=== PATIENT | female | born 1970 | race Hispanic/Latino ===

== ENCOUNTER 2017-09-12 13:15 | Emergency (ER) | payer OTHER ==
[2017-09-12 13:47] VITALS: BP 141/87; PULSE 105; RESP 20; TEMP 97.2; O2SAT 100
--- NOTE | 2017-09-12 14:33 | ED PDOC ---
HPI: Headache Time Seen by Provider: 09/12/17 14:09 Chief Complaint (Nursing): Headache Chief Complaint (Provider): Headache History Per: Patient History/Exam Limitations: no limitations Onset/Duration Of Symptoms: Days (x2) Current Symptoms Are (Timing): Still Present Associated Symptoms: Nausea Additional Complaint(s): Estefani Mack is a 47-year-old female who presents to the emergency department for evaluation of a headache with associated nausea for the past 2 days. Patient denies any vomiting. She states that symptoms are similar to episodes of migraines in the past. Patient reports that she was treated for a migraine in the ER previously, and believes she was given Percocet. She has taken Aleve nd advil with minimal improvement. She denies taking any medications for relief of symptoms today. Patient states percocet is the only med that helps when she has migraines. She rates current pain as 7/10. PMD: [facility] Past Medical History Reviewed: Historical Data, Nursing Documentation, Vital Signs Vital Signs: Last Vital Signs Temp 97.2 F L 09/12/17 13:44 Pulse 105 H 09/12/17 13:44 Resp 20 09/12/17 13:44 BP 141/87 09/12/17 13:44 Pulse Ox 100 09/12/17 13:44 - Medical History PMH: Depression, HTN (not on meds), Migraine - Surgical History Surgical History: No Surg Hx - Family History Family History: States: Hypertension - Living Arrangements Living Arrangements: With Family - Social History Current smoker - smoking cessation education provided: Yes ("sometimes") Alcohol: None Drugs: Denies - Home Medications Home Medications: Ambulatory Orders Medication Instructions Recorded Amoxicillin 500 mg PO BID #14 tab 06/16/16 Ibuprofen [Motrin] 600 mg PO Q6 #20 tab 08/23/16 Lidocaine 1 each TP Q12 #12 adh..patch 08/23/16 oxyCODONE/Acetaminophen [Percocet 1 ea PO Q6 PRN #5 tab 08/23/16 5/325 mg Tab] Cyclobenzaprine [Cyclobenzaprine 10 mg PO Q8H #20 tab 08/17/17 HCl] Metoclopramide [Reglan] 10 mg PO Q6 PRN #20 tab 09/12/17 Nabumetone [Relafen] 500 mg PO BID #20 tab 09/12/17 - Allergies Allergies/Adverse Reactions: Allergies Allergy/AdvReac Type Severity Reaction Status Date / Time No Known Allergies Allergy Verified 08/23/16 17:24 Review of Systems ROS Statement: Except As Marked, All Systems Reviewed And Found Negative Gastrointestinal: Positive for: Nausea. Negative for: Vomiting Neurological: Positive for: Headache. Negative for: Weakness, Numbness, Incoordination, Change in Speech, Confusion, Seizures, Altered Mental Status, Dizziness Physical Exam - Reviewed Nursing Documentation Reviewed: Yes Vital Signs Reviewed: Yes - Physical Exam Appears: Positive for: Non-toxic, No Acute Distress Head Exam: Positive for: ATRAUMATIC, NORMAL INSPECTION, NORMOCEPHALIC Skin: Positive for: Normal Color. 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 Negative for: Motor/Sensory Deficits, Aphasia - Laboratory Results Urine POC: Negative - ECG O2 Sat by Pulse Oximetry: 100 (RA) Pulse Ox Interpretation: Normal Medical Decision Making Medical Decision Making: Time: 14:30 Initial Impression: 47 year old female with headache, history of migraines Patient was made aware of [facility] non-narcotic pain management policy when treating migraines. Initial Plan: --Urine --Reglan 10 mg IM --Toradol 30 mg IM Patient reports improvement in headache after medications administered. She was given prescriptions for Relafen and Reglan. Advised fluids, rest and follow-up with [facility]. Scribe Attestation: Documented by Vee Stewart, acting as a scribe for Salma Crawford PA-C Provider Scribe Attestation: All medical record entries made by the Scribe were at my direction and personally dictated by me. I have reviewed the chart and agree that the record accurately reflects my personal performance of the history, physical exam, medical decision making, and the department course for this patient. I have also personally directed, reviewed, and agree with the discharge instructions and disposition. Disposition - Clinical Impression Clinical Impression: Migraine - Patient ED Disposition Is Patient to be Admitted: No Counseled Patient/Family Regarding: Diagnosis, Need For Followup, Rx Given - Disposition Referrals: [facility] [Outside] Disposition: Routine/Home Disposition Time: 16:23 Condition: IMPROVED Additional Instructions: Take rx meds as directed. Follow up with primary care doctor in 2-3 days. Prescriptions: Metoclopramide [Reglan] 10 mg PO Q6 PRN #20 tab PRN Reason: Nausea/Vomiting Nabumetone [Relafen] 500 mg PO BID #20 tab Instructions: Migraine Headache (ED) Forms: [employer] (Indonesian)
== END 2017-09-12 17:16 | disposition home or self-care (01) ==
LOC: H.ER 13:15
DX: G43.909 Migraine, unspecified, not intractable, without status migrainosus (principal); F32.9 Major depressive disorder, single episode, unspecified; I10 Essential (primary) hypertension
CPT/HCPCS: 81025; 96372; 99283; J1885; J2765

== ENCOUNTER 2017-11-27 10:46 | Emergency (ER) | payer OTHER ==
[2017-11-27 12:13] VITALS: BP 138/78; PULSE 78; RESP 19; TEMP 97.8; O2SAT 99
--- NOTE | 2017-11-27 12:29 | ED PDOC ---
HPI: CCC, URI, Sore Throat Time Seen by Provider: 11/27/17 12:21 Chief Complaint (Nursing): Cough, Cold, Congestion Chief Complaint (Provider): Cough History Per: Patient History/Exam Limitations: no limitations Onset/Duration Of Symptoms: Days (x3) Current Symptoms Are (Timing): Still Present Additional Complaint(s): 47 year old female presents to the ER complaining of cough for 2-3 days. Cough is productive of yellow sputum. She denies any fever or chills. Initially she was vomiting but this has resolved. Taking Nyquil without relief. PMD: None Past Medical History Reviewed: Historical Data, Nursing Documentation, Vital Signs Vital Signs: Last Vital Signs Temp 97.8 F 11/27/17 12:10 Pulse 78 11/27/17 12:10 Resp 19 11/27/17 12:10 BP 138/78 11/27/17 12:10 Pulse Ox 99 11/27/17 12:46 - Medical History PMH: Depression, HTN (not on meds), Migraine - Family History Family History: States: Hypertension - Social History Current smoker - smoking cessation education provided: No - Home Medications Home Medications: Ambulatory Orders Medication Instructions Recorded Amoxicillin 500 mg PO BID #14 tab 06/16/16 Ibuprofen [Motrin] 600 mg PO Q6 #20 tab 08/23/16 Lidocaine 1 each TP Q12 #12 adh..patch 08/23/16 oxyCODONE/Acetaminophen [Percocet 1 ea PO Q6 PRN #5 tab 08/23/16 5/325 mg Tab] Cyclobenzaprine [Cyclobenzaprine 10 mg PO Q8H #20 tab 08/17/17 HCl] Metoclopramide [Reglan] 10 mg PO Q6 PRN #20 tab 09/12/17 Nabumetone [Relafen] 500 mg PO BID #20 tab 09/12/17 Albuterol HFA [Ventolin HFA 90 2 puff IH [id number] PRN #1 inhaler 11/27/17 mcg/actuation (8 g)] Promethazine/Codeine 5 ml PO Q12 PRN #100 ml 11/27/17 [Codeine/Promethazine 10 MG/5 Ml-6.25 MG/5 Ml] - Allergies Allergies/Adverse Reactions: Allergies Allergy/AdvReac Type Severity Reaction Status Date / Time No Known Allergies Allergy Verified 11/27/17 12:13 Review of Systems ROS Statement: Except As Marked, All Systems Reviewed And Found Negative Constitutional: Negative for: Fever, Chills Respiratory: Positive for: Cough, Sputum Gastrointestinal: Negative for: Vomiting Physical Exam - Reviewed Nursing Documentation Reviewed: Yes Vital Signs Reviewed: Yes - Physical Exam Appears: Positive for: Non-toxic, No Acute Distress Head Exam: Positive for: ATRAUMATIC, NORMOCEPHALIC Skin: Positive for: Normal Color, Warm, Dry Eye Exam: Positive for: EOMI, Normal appearance, PERRL ENT: Positive for: Normal ENT Inspection Neck: Positive for: Normal, Painless ROM Cardiovascular/Chest: Positive for: Regular Rate, Rhythm. Negative for: Murmur Respiratory: Positive for: Normal Breath Sounds. Negative for: Accessory Muscle Use, Rales, Wheezing, Respiratory Distress Neurologic/Psych: Positive for: Alert, Oriented - ECG O2 Sat by Pulse Oximetry: 99 (RA) Pulse Ox Interpretation: Normal Medical Decision Making Medical Decision Making: Impression: Viral illness Plan: Stable for discharge home. Given rx for Ventolin inhaler and Promethazine. Counseling was provided and all questions were answered regarding diagnosis and need for follow up with PMD. There is agreement to discharge plan. Return if symptoms persist or worsen. Scribe Attestation: Documented by Vee Stewart, acting as a scribe for Mario Koch PA-C Provider Scribe Attestation: All medical record entries made by the Scribe were at my direction and personally dictated by me. I have reviewed the chart and agree that the record accurately reflects my personal performance of the history, physical exam, medical decision making, and the department course for this patient. I have also personally directed, reviewed, and agree with the discharge instructions and disposition. Disposition - Clinical Impression Clinical Impression: Viral illness - Patient ED Disposition Is Patient to be Admitted: No Counseled Patient/Family Regarding: Diagnosis, Need For Followup, Rx Given - Disposition Referrals: [facility] [Outside] Disposition: Routine/Home Disposition Time: 12:25 Condition: STABLE Prescriptions: Albuterol HFA [Ventolin HFA 90 mcg/actuation (8 g)] 2 puff IH [id number] PRN #1 inhaler PRN Reason: Cough Promethazine/Codeine [Codeine/Promethazine 10 MG/5 Ml-6.25 MG/5 Ml] 5 ml PO Q12 PRN #100 ml PRN Reason: Cough Instructions: Upper Respiratory Infection (ED) Forms: [employer] (Austrian), [facility] ED School/Work Excuse
== END 2017-11-27 12:53 | disposition home or self-care (01) ==
LOC: H.ER 10:46
DX: J06.9 Acute upper respiratory infection, unspecified (principal); F32.9 Major depressive disorder, single episode, unspecified; I10 Essential (primary) hypertension